=== PATIENT | female | born 1995 | race Caucasian/White ===

== ENCOUNTER 2024-01-23 14:34 | Inpatient (IN) | payer OTHER, SELFPAY ==
[2024-01-23 15:54] VITALS: BMI 27.8
[2024-01-23] MEDS ORDERED: Electrolyte Replacement Protocol 1 EACH FS SCH (16:15)
[2024-01-23] MEDS ORDERED: Electrolyte Replacement Protocol FS PRN (16:30)
[2024-01-23] MEDS: Morphine 4 MG/ML VIAL SLOW IVP PRN (18:03)
[2024-01-23] MEDS: Sodium Chloride 0.9% 1,000 ML IV SCH (18:03)
[2024-01-23] MEDS: HYDROcodone/Acetaminophen 5/325 mg Tablet PO PRN (19:18)
[2024-01-23] MEDS: Ciprofloxacin Lactate/D5W 400 MG in Premix 1 BAG IVPB SCH (21:11)
[2024-01-23] MEDS: Famotidine/PF 20 mg/2ml Vial SLOW IVP SCH (21:11)
[2024-01-23] MEDS: metroNIDAZOLE 500 MG in Premix 1 BAG IVPB SCH (21:11)
[2024-01-24] MEDS: Morphine 4 MG/ML VIAL SLOW IVP PRN (00:29)
[2024-01-24 06:24] LABS: Hematocrit 33.7 % (36.0-47.0); Hemoglobin 11.4 g/dL (12.0-16.0); Mean Corpuscular HGB CONC 33.8 g/dL (32.0-36.0); Mean Corpuscular Hemoglobin 29.8 pg (27.0-31.0); Mean Corpuscular Volume 88.2 fL (78.0-98.0); Mean Platelet Volume 9.2 fL (7.4-10.4); Platelet Count 189 10x3/uL (130-400); RBC Distribution Width 12.4 % (11.5-14.5); Red Blood Cell (RBC) Count 3.82 mill/uL (4.20-5.40)
[2024-01-24 06:56] LABS: Band 30 % (5-11); Eosinophils 1 % (0-10); Lymphocytes 7 % (21-51); Neutrophil 61 % (42-75); Platelet Adequacy Comment Platelets Normal; RBC Morphology Within Normal Limits; Reactive Lymphocytes 1 % (0-10)
[2024-01-24 07:11] LABS: ALT (SGPT) 12 U/L (8-55); AST (SGOT) 19 U/L (5-34); Albumin 2.4 g/dL (3.5-5.0); Alkaline Phosphatase 39 U/L (40-110); Anion Gap 12 mmol/L (10-20); BUN (Urea Nitrogen) 4 mg/dL (7.0-18.7); Bilirubin, Total 0.3 mg/dL (0.2-1.2); Calc. Creatinine Clearance 134 mL/min (70-130); Calcium 7.8 mg/dL (7.8-10.44); Carbon Dioxide 20 mmol/L (22-29); Chloride 108 mmol/L (98-107); Estimated GFR 119; Globulin 2.9 g/dL (2.4-3.5); Glucose 89 mg/dL (70-105); Magnesium 1.6 mg/dL (1.6-2.6); Potassium 3.5 mmol/L (3.5-5.1); Protein, Total 5.3 g/dL (6.0-8.3); Sodium 136 mmol/L (136-145)
[2024-01-24] MEDS: Ondansetron PF 4 MG/2 ML Vial IVP PRN (07:41)
[2024-01-24] MEDS: Potassium Chloride 20 MEQ in Premix 1 BAG IVPB SCH (09:12)
[2024-01-24] MEDS: Magnesium 2 GM/50 ML(in water) 2 GM in Premix 1 BAG IVPB SCH (09:12)
[2024-01-24 12:37] LABS: Campy jejuni + coli by PCR POSITIVE (Negative); STEC Shiga Toxin 1+2 Negative (Negative); Salmonella spp. by PCR Negative (Negative); Shigella spp + EIEC by PCR Negative (Negative)
[2024-01-24] MEDS: Scopolamine 1 mg/72 hour Patch TD SCH (14:40)
[2024-01-24] MEDS: Morphine 2 MG/ML VIAL SLOW IVP PRN (14:40)
[2024-01-24] MEDS: traMADol HCl 50 MG TAB PO PRN (19:51)
[2024-01-25 07:54] LABS: Anion Gap 11 mmol/L (10-20); BUN (Urea Nitrogen) 4 mg/dL (7.0-18.7); Calc. Creatinine Clearance 132 mL/min (70-130); Calcium 7.8 mg/dL (7.8-10.44); Carbon Dioxide 19 mmol/L (22-29); Chloride 110 mmol/L (98-107); Estimated GFR 117; Glucose 88 mg/dL (70-105); Potassium 3.9 mmol/L (3.5-5.1); Sodium 136 mmol/L (136-145)
[2024-01-25 08:05] LABS: Hematocrit 32.4 % (36.0-47.0); Hemoglobin 10.7 g/dL (12.0-16.0); Mean Corpuscular Hemoglobin 29.9 pg (27.0-31.0); Mean Corpuscular Volume 90.5 fL (78.0-98.0); Mean Platelet Volume 9.3 fL (7.4-10.4); Platelet Count 207 10x3/uL (130-400); RBC Distribution Width 12.3 % (11.5-14.5); Red Blood Cell (RBC) Count 3.58 mill/uL (4.20-5.40)
[2024-01-25 08:27] LABS: Band 27 % (5-11); Eosinophils 1 % (0-10); Lymphocytes 22 % (21-51); Monocytes 5 % (0-10); Neutrophil 43 % (42-75); Platelet Adequacy Comment Platelets Normal; RBC Morphology Within Normal Limits; Reactive Lymphocytes 1 % (0-10)
[2024-01-25] MEDS: Azithromycin 500 MG in Sodium Chloride 0.9% 250 ML 250 ML IVPB SCH (16:45)
[2024-01-26 01:16] VITALS: TEMP 97.8
[2024-01-26 05:31] LABS: Hematocrit 32.5 % (36.0-47.0); Hemoglobin 10.7 g/dL (12.0-16.0); Mean Corpuscular HGB CONC 32.9 g/dL (32.0-36.0); Mean Corpuscular Hemoglobin 29.1 pg (27.0-31.0); Mean Corpuscular Volume 88.3 fL (78.0-98.0); Mean Platelet Volume 9.1 fL (7.4-10.4); Platelet Count 245 10x3/uL (130-400); RBC Distribution Width 12.2 % (11.5-14.5); Red Blood Cell (RBC) Count 3.68 mill/uL (4.20-5.40)
[2024-01-26 06:11] LABS: Anion Gap 7 mmol/L (10-20); BUN (Urea Nitrogen) 5 mg/dL (7.0-18.7); Calc. Creatinine Clearance 130 mL/min (70-130); Carbon Dioxide 22 mmol/L (22-29); Chloride 110 mmol/L (98-107); Estimated GFR 116; Glucose 92 mg/dL (70-105); Potassium 3.9 mmol/L (3.5-5.1); Sodium 135 mmol/L (136-145)
[2024-01-26] MEDS: Acetaminophen 325 MG TAB PO PRN (08:05)
[2024-01-26 08:22] LABS: Band 12 % (5-11); Eosinophils 1 % (0-10); Large Platelets 0.9 % (0-5); Lymphocytes 19 % (21-51); Monocytes 5 % (0-10); Neutrophil 61 % (42-75); Platelet Adequacy Comment Platelets Normal; RBC Morphology Within Normal Limits; Reactive Lymphocytes 2 % (0-10)
[2024-01-26 08:51] VITALS: BP 110/71
== END 2024-01-26 12:06 | disposition home or self-care (01) | DRG 872 ==
LOC: 2NO 15:13 → SURG B 01-24 21:44
PROVIDERS: ADMIT Family Medicine; ATTEND Family Medicine
DX: A41.9 Sepsis, unspecified organism (principal); A04.5 Campylobacter enteritis; K92.1 Melena; Z88.0 Allergy status to penicillin
CPT/HCPCS: 36415; 80048; 80053; 83735; 85025; 87324; 87449; 87505; J0456; J0744; J2270; J2272; J2405; J3475; J3480; J7050; S0028